=== PATIENT | female | born 1985 | race American Indian/Alaskan Native ===

== ENCOUNTER 2019-05-27 03:02 | Emergency (ER) | payer SELFPAY ==
[2019-05-27 03:41] LABS: Bacteria,Urine 1+ /HPF (Negative); Bilirubin,Urine NEG (Negative); Blood,Urine MOD (Negative); Color,Urine Yellow (Yellow); Mucus,Urine FEW /HPF; Protein,Urine <15 mg/dL mg/dL (Negative); Urobilinogen,Urine < 2.0 mg/dL (<2.0)
--- NOTE | 2019-05-27 05:31 | Emergency Department Report ---
ED General Adult HPI - General Chief complaint: Back Pain/Injury Stated complaint: LOWER BACK PAIN Time Seen by Provider: 05/27/19 03:56 Source: patient Mode of arrival: Ambulatory Limitations: No Limitations - History of Present Illness Initial comments: 33-year-old female to emergency Department complaining of dysuria as well as vaginal discharge, which she states has not yet responded to [place] stat. She reports most Past medical history denies any fevers, chills, sweats, reports no hematuria, polyuria, hemoptysis, hematemesis, hematochezia, vomiting, diarrhea. No pelvic pain Radiation: non-radiation Consistency: constant Improves with: none Worsens with: none Associated Symptoms: denies: chest pain, cough, diaphoresis, fever/chills, loss of appetite, malaise, nausea/vomiting, rash, seizure, syncope, weakness - Related Data Previous Rx's Medication Instructions Recorded Last Taken Type Fluconazole [Diflucan TAB] 150 mg PO ONCE #1 tablet 05/27/19 Unknown Rx Phenazopyridine [Pyridium] 200 mg PO TID #10 tab 05/27/19 Unknown Rx Allergies Allergy/AdvReac Type Severity Reaction Status Date / Time hydrocodone Allergy Rash Verified 05/27/19 03:08 ED Review of Systems ROS: Stated complaint: LOWER BACK PAIN Other details as noted in HPI Comment: All other systems reviewed and negative ED Past Medical Hx - Past Medical History Previous Medical History?: Yes Hx Diabetes: Yes - Surgical History Past Surgical History?: Yes Hx Cholecystectomy: Yes Hx Appendectomy: Yes Additional Surgical History: 17CM intestines removed, Hysterectomy - Social History Smoking Status: Current Every Day Smoker - Medications Home Medications: Home Medications Medication Instructions Recorded Confirmed Last Taken Type Fluconazole [Diflucan TAB] 150 mg PO ONCE #1 tablet 05/27/19 Unknown Rx Phenazopyridine [Pyridium] 200 mg PO TID #10 tab 05/27/19 Unknown Rx ED Physical Exam - General Limitations: No Limitations General appearance: alert, in no apparent distress - Head Head exam: Present: atraumatic, normocephalic - Eye Eye exam: Present: normal appearance - ENT ENT exam: Present: mucous membranes moist - Neck Neck exam: Present: normal inspection - Respiratory Respiratory exam: Present: normal lung sounds bilaterally. Absent: respiratory distress - Cardiovascular Cardiovascular Exam: Present: regular rate, normal rhythm. Absent: systolic murmur, diastolic murmur, rubs, gallop - GI/Abdominal GI/Abdominal exam: Present: soft, normal bowel sounds. Absent: distended, tenderness, guarding - Extremities Exam Extremities exam: Present: normal inspection - Back Exam Back exam: Present: normal inspection. Absent: CVA tenderness (R), CVA tenderness (L) - Neurological Exam Neurological exam: Present: alert, oriented X3. Absent: CN II-XII intact - Psychiatric Psychiatric exam: Present: normal affect, normal mood - Skin Skin exam: Present: warm, dry, intact, normal color. Absent: rash ED Course Vital Signs 05/27/19 03:13 Temperature 97.5 F L Pulse Rate 80 Respiratory 18 Rate Blood Pressure 118/89 O2 Sat by Pulse 100 Oximetry ED Medical Decision Making - Medical Decision Making 33-year-old female with reported dysuria. States that now states that she's been having what she feels this these down then not responding to Monistat. She also now admits to having a health condition and that of diabetes which she treats with metformin. She did not reveal this information until at the time of discharge. Critical care attestation.: If time is entered above; I have spent that time in minutes in the direct care of this critically ill patient, excluding procedure time. ED Disposition Clinical Impression: Elevated glucose, Dysuria Disposition: DC-01 TO HOME OR SELFCARE Is pt being admited?: No Does the pt Need Aspirin: No Condition: Stable Instructions: Dysuria (ED), Diabetic Hyperglycemia (ED) Additional Instructions: Please be sure to follow department about a for reevaluation of her blood sugar which was 250 today. Also need to medications adjusted as we discussed that she was not taking them properly. Prescriptions: Fluconazole [Diflucan TAB] 150 mg PO ONCE #1 tablet Phenazopyridine [Pyridium] 200 mg PO TID #10 tab Referrals: THEO LEE MD [Primary Care Provider] - 3-5 Days
[2019-05-27 05:47] VITALS: BP 123/69
== END 2019-05-27 05:25 | disposition home or self-care (01) ==
LOC: ED 03:02
DX: E11.65 Type 2 diabetes mellitus with hyperglycemia (principal); F17.200 Nicotine dependence, unspecified, uncomplicated; Z90.710 Acquired absence of both cervix and uterus; Z90.49 Acquired absence of other specified parts of digestive tract
CPT/HCPCS: 81001; 82962